=== PATIENT | male | born 1975 | race Caucasian/White ===

== ENCOUNTER 2019-04-02 14:55 | Inpatient (IN) | payer OTHER ==
[~2019-04-02] VITALS: Ht 188 cm; Wt 100.2 kg
--- NOTE | 2019-04-02 15:10 | NUR ---
PATIENT BIGG, CAME IN DUE TO BINGE DRINKING SINCE WEDNESDAY. ON ROOM AIR, BREATHING EVENLY AND UNLABORED. CONNECTED TO THE MONITOR AND PULSE OX. KEPT COMFORTABLE, WILL CONTINUE TO MONITOR ACCORDINGLY.
[2019-04-02] MEDS ORDERED: ONDANSETRON HCL/PF 4 MG/2 ML VIAL ONE (15:21)
[2019-04-02 15:25] LABS: BASOPHILS # (AUTO) 0.1 /CMM (0.0-0.2); BASOPHILS % (AUTO) 0.6 % (0.0-2.0); EOSINOPHILS % (AUTO) 0.2 % (0.0-6.0); HEMATOCRIT 50 % (39-51); HEMOGLOBIN 17.1 g/dL (13.5-17.5); LYMPHOCYTES # (AUTO) 1.3 /CMM (0.8-4.8); LYMPHOCYTES % (AUTO) 16.1 % (20.0-44.0); MEAN CORPUSCULAR HGB CONC 34 g/dl (31.0-36.0); MEAN CORPUSCULAR VOLUME 92 fL (80-96); MONOCYTES # (AUTO) 0.3 /CMM (0.1-1.30); MONOCYTES % (AUTO) 3.6 % (2.0-12.0); NEUTROPHILS # (AUTO) 6.6 /CMM (1.8-8.9); NEUTROPHILS % (AUTO) 79.5 % (43.0-81.0); PLATELET COUNT (AUTO) 229 /CMM (150-450); RED BLOOD CELL COUNT(AUTO) 5.43 MIL/uL (4.5-6.0); WHITE BLOOD COUNT (AUTO) 8.3 K/uL (4.3-11.0)
[2019-04-02] MEDS ORDERED: ONDANSETRON HCL/PF 4 MG/2 ML VIAL IVP ONE (15:30)
[2019-04-02] MEDS ORDERED: IV NS 0.9% 1,000 ML BAG IV ONE ×2 (15:30→18:30)
[2019-04-02 15:45] LABS: CALCIUM, SERUM 8.5 mg/dL (8.5-10.1); CARBON DIOXIDE 21 mmol/L (21-32); CHLORIDE 95 mmol/L (98-107); CREATININE 1.1 mg/dL (0.6-1.3); GLUCOSE 187 mg/dL (74-106); POTASSIUM 3.1 mmol/L (3.5-5.1); SODIUM SERUM 137 mmol/L (136-145); UREA NITROGEN, BLOOD 15 mg/dL (7-18)
--- NOTE | 2019-04-02 15:45 | NUR ---
PATIENT UNABLE TO URINATE AT THIS TIME FOR URINE SPECIMEN, WILL CONTINUE TO MONITOR.
[2019-04-02 15:55] LABS: SALICYLATE 1.6 mg/dL (2.8-20.0)
[2019-04-02 15:57] LABS: ALANINE AMINOTRANSFERASE 85 U/L (12-78); ALKALINE PHOSPHATASE 61 U/L (46-116); ASPARTATE AMINOTRANSFERASE 100 U/L (15-37); BILIRUBIN,DIRECT 0.3 mg/dL (0.0-0.2); BILIRUBIN,TOTAL 0.8 mg/dL (0.2-1.0); LIPASE 392 U/L (73-393); TOTAL PROTEIN, SERUM 8.3 g/dL (6.4-8.2)
[2019-04-02 16:57] LABS: B-TYPE NATRIURETIC PEPTIDE 17 PG/ML (0-125)
[2019-04-02] MEDS ORDERED: ACETAMINOPHEN ES 500 MG TABLET ONE (17:34)
[2019-04-02 17:58] LABS: ABG BASE EXCESS -1.2 mmol/L; ABG OXYGEN SATURATION 95.4 % (92.0-98.5); ABG PCO2 31.2 mmHg (35.0-45.0); ABG PH 7.455 (7.350-7.450); ABG PO2 83.6 mmHg (75.0-100.0); AaDO2 28.8 mmHg; COHb 0.6 % (0.5-1.5); MetHb 0.5 % (0.0-1.5); O2Hb 94.4 % (94.0-97.0); SITE, ABG Right Radial; VENT MODE, BG RA
--- NOTE | 2019-04-02 18:07 | NUR ---
RECIEVED BED 115-1
[2019-04-02] MEDS ORDERED: Z GUARD REMEDY 2 OZ OINT TP PRN (18:30)
[2019-04-02] MEDS ORDERED: MAG HYDROX/AL HYDROX/SIMETH 30 ML UDC PO PRN (18:30)
[2019-04-02] MEDS ORDERED: ASPIRIN 81 MG TAB.CHEW PO ONE (18:30)
[2019-04-02] MEDS ORDERED: MVI-12 10ML IV ONE (18:30)
[2019-04-02] MEDS ORDERED: ACETAMINOPHEN 325 MG TABLET PO PRN (18:30)
[2019-04-02] MEDS ORDERED: MAGNESIUM HYDROXIDE 30 ML UDC PO PRN (18:30)
[2019-04-02] MEDS ORDERED: POTASSIUM CHLORIDE 20 MEQ TAB.PRT.SR PO ONE ×2 (18:30→18:44)
[2019-04-02] MEDS ORDERED: ASPIRIN 81 MG TAB.CHEW ONE (18:44)
[2019-04-02] MEDS ORDERED: MVI ADULT 10ML VIAL = 1AMP 10 ML in IV NS 0.9% 1,000 ML IV ONE (19:00)
--- NOTE | 2019-04-02 19:13 | NUR ---
WHEELED PATIENT VIA GURNEY ACCOMPANIED BY RN AND FAMILY DEVELOPMENT EXTENSION SPECIALIST IN NO APPARENT DISTRESS NOTED.
[2019-04-02 20:00] VITALS: BP 146/90
--- NOTE | 2019-04-02 20:00 | NUR ---
ELECTRON BEAM OPERATOR NOTE ADMITTED 44 YEARS OLD MALE PT FROM ER WITH THE DX OF ETOH INTOXICATION. A/O X 4, NO SOB NOTED. C/O SEVER HEADACHE 04/22 NORCO 1 TAB PO GIVEN. ALSO GIVEN REGULAR MEDS. IVF NS BOLUS INFUSING AT THIS TIME. RT HAND # 18 G IV SITE INTACT AND PATENT. NO S/S OF INFILTRATION NOTED. ON TELE S TECH HR 125. SIDE RAILS UP X 2 AND CALL LIGHT WITHIN REACH. ORIENTED THE PT TO HIS ROOM. ADMITTING ORDERS CHECKED AND CARRIED OUT. ALL NEEDS ATTENDED.
[2019-04-02] MEDS: HYDROCODONE/APAP 5/325MG 1 EACH TABLET PO PRN (20:06)
[2019-04-02] MEDS: LORAZEPAM INJ 2 MG/ML VIAL IV PRN (20:27)
--- NOTE | 2019-04-02 20:30 | NUR ---
TRACKMOBILE OPERATOR NOTE PT IS ANXIOUS AND HAVING TREMORS ATIVAN 2 MG IVP GIVEN. CONTINUE TO MONITOR HIM.
--- NOTE | 2019-04-02 21:00 | NUR ---
POWER LINE INSTALLER AND REPAIRER NOTE ANXIETY AND TREMORS SUBSIDED. CONTINUE TO MONITOR. MOTHER AT BED SIDE.
[2019-04-02] MEDS: Thiamine 100 MG in IV D5W 50 ML IV SCH (21:05)
[2019-04-02] MEDS: Folic acid 1 MG in IV D5W 50 ML IV SCH (22:02)
--- NOTE | 2019-04-02 22:57 | NUR ---
IN FLIGHT REFUELING OPERATOR NOTE INFORMED DR HOOD REGARDING TROP LEVEL WENT UP TO 0.149. PER MD HE WILL LOOK INTO IT. PT DENIES CHEST PAIN OR ANY DISCOMFORT. ALSO REPORT GIVEN TO TAYO FOR CONTINUE TO CARE.
[2019-04-03] VITALS: BP 138/85
[2019-04-03] MEDS: LORAZEPAM INJ 2 MG/ML VIAL IV PRN ×5 (00:01→20:44)
[2019-04-03] MEDS ORDERED: Folic acid 1 MG/0.2 ML VIAL ONE (00:33)
[2019-04-03] MEDS ORDERED: Thiamine 100 MG/ML VIAL ONE (00:33)
[2019-04-03] MEDS: ZOLPIDEM TARTRATE 5 MG TABLET PO PRN (00:53)
--- NOTE | 2019-04-03 01:32 | NUR ---
REPORT RECEIVED FROM MIKE DOWLING. WILL CONTINUE CARE. Addendum: 04/03/19 at 0133 by ABHAY ZAMUDIO RN TIME AND DATE 04/02 4192
[2019-04-03] MEDS: HYDROCODONE/APAP 5/325MG 1 EACH TABLET PO PRN ×5 (03:25→20:44)
[2019-04-03 04:00] VITALS: BP 131/81
[2019-04-03 04:45] LABS: CALCIUM, SERUM 7.6 mg/dL (8.5-10.1); CREATININE 0.9 mg/dL (0.6-1.3); MAGNESIUM 1.6 mg/dL (1.8-2.4); PHOSPHORUS 1.3 mg/dL (2.5-4.9); POTASSIUM 3.1 mmol/L (3.5-5.1)
[2019-04-03 04:52] LABS: BASOPHILS % (AUTO) 0.3 % (0.0-2.0); EOSINOPHILS % (AUTO) 0.5 % (0.0-6.0); HEMATOCRIT 40 % (39-51); HEMOGLOBIN 13.8 g/dL (13.5-17.5); LYMPHOCYTES # (AUTO) 1.3 /CMM (0.8-4.8); LYMPHOCYTES % (AUTO) 17.1 % (20.0-44.0); MEAN CORPUSCULAR HGB CONC 34 g/dl (31.0-36.0); MEAN CORPUSCULAR VOLUME 91 fL (80-96); MONOCYTES # (AUTO) 0.4 /CMM (0.1-1.30); MONOCYTES % (AUTO) 4.7 % (2.0-12.0); NEUTROPHILS # (AUTO) 5.8 /CMM (1.8-8.9); NEUTROPHILS % (AUTO) 77.4 % (43.0-81.0); PLATELET COUNT (AUTO) 142 /CMM (150-450); RED BLOOD CELL COUNT(AUTO) 4.41 MIL/uL (4.5-6.0); WHITE BLOOD COUNT (AUTO) 7.4 K/uL (4.3-11.0)
--- NOTE | 2019-04-03 06:15 | NUR ---
RN MS CLOSING NOTE PT REMAINS IN BED SLEEPING INTERMITTENTLY, BREATHING EVEN AND UNLABORED ON RA. NO COMPLAIN OF PAIN OR DISCOMFORT AT THE MOMENT. IV ACCESS ON THE R HAND 18G WITH MV IV @125ML/HR. INVOICING SPECIALIST IN PLACE, SR IN THE 90S BED IN LOWEST LOCKED POSITION, CALL LIGHT WITHIN REACH AT ALL TIMES, WILL ENDORSE TO DAY NURSE FOR DEMETRA.
--- NOTE | 2019-04-03 07:35 | NUR ---
RN OPENING NOTES RECEIVED PATIENT IN BED RESTING. ON TELEMONITOR SR 97. A/OX4 ABLE TO MAKE NEEDS KNOWN. NOT IN ANY FORM OF DISTRESS. NO SOB. COMPLAINS OF HEADACHE 04/22, WILL ADMINISTER PAIN MEDS ORDERED. TOLERATING ROOM AIR SATTING 96%. IV ACCESS INTACT AND PATENT. KEPT PATIENT SAFE AND COMFORTABLE. BED IN LOW/LOCKED POSIITON, SIDERAISL UPX2, CALL LIGHT IN REACH. BED ALARM ON. WILL CONTINUE TO MONIOTR ACCORDINGLY.
[2019-04-03] MEDS: ONDANSETRON HCL/PF 4 MG/2 ML VIAL IVP PRN (07:47)
[2019-04-03 08:00] VITALS: BP 139/99
[2019-04-03] MEDS: CYANOCOBALAMIN 500 MCG TABLET PO SCH (09:22)
[2019-04-03] MEDS ORDERED: Magnesium 1GM/D5W 100ML PREMIX 100 ML IV SCH (09:23)
[2019-04-03] MEDS: IV NS 0.9% 1,000 ML IV PRN (09:26)
[2019-04-03] MEDS: POTASSIUM CHLORIDE 20 MEQ TAB.PRT.SR PO SCH ×2 (10:10→12:13)
[2019-04-03] MEDS ORDERED: K PHOS NEUTRAL 250 MG TABLET PO ONE (11:30)
[2019-04-03 12:00] VITALS: BP 148/113
[2019-04-03 16:00] VITALS: BP 156/98
--- NOTE | 2019-04-03 18:41 | NUR ---
RN CLOSING NOTES PATIENT IN STABLE CONDITION. ALL NEED ATTENDED AND PROVIDED. ALL DUE MEDICATIONS GIVEN S ORDERED. KEPT PATIENT SAFE AND COMFORTABLE. BED IN LOW/LOCKED POSITION, SIDERAILS UPX2, CALL LIGHT IN REACH. WILL ENDORSED TO NIGHT RN FOR DEMETRA.
--- NOTE | 2019-04-03 19:39 | NUR ---
MS RN NOTES RECEIVED PT ON BED. SLEEPING. ON RA NO RESPIRATORY DISTRESS NOTED. IV ACCESS ON RHAND G18 NS @125CC/HR, RUNNING WELL. PATENT AND INTACT. HEAD OF BED ELEVATED. SIDE RAILS UP. CALL LIGHT WITHIN REACH, BED ALARM ON. WILL CONT TO MONITOR PT CLOSELY.
[2019-04-03] MEDS: Thiamine 100 MG in IV D5W 50 ML IV SCH (19:55)
[2019-04-03 20:00] VITALS: BP 152/106
[2019-04-03] MEDS: Folic acid 1 MG in IV D5W 50 ML IV SCH (20:46)
[2019-04-04] VITALS (9 sets, daily range): BP systolic 139–173; BP diastolic 84–119
[2019-04-04] MEDS: IV NS 0.9% 1,000 ML IV PRN (00:03)
[2019-04-04] MEDS: LORAZEPAM INJ 2 MG/ML VIAL IV PRN ×5 (01:31→20:09)
[2019-04-04] MEDS: HYDROCODONE/APAP 5/325MG 1 EACH TABLET PO PRN ×5 (01:31→20:09)
[2019-04-04] MEDS: ZOLPIDEM TARTRATE 5 MG TABLET PO PRN ×2 (02:03→22:36)
--- NOTE | 2019-04-04 04:26 | NUR ---
MS RN NOTES BP OF 171/117 MMHG. PAGED EPIC KETTLE ROOM HELPER, AWAITING FOR ORDERS.
--- NOTE | 2019-04-04 05:38 | NUR ---
MS RN NOTES PAGED SAVANNAH HARLEY SHOE LINING FITTER X2. AWAITING CALL BACK.
[2019-04-04 06:38] LABS: BASOPHILS % (AUTO) 0.2 % (0.0-2.0); EOSINOPHILS % (AUTO) 3.6 % (0.0-6.0); HEMATOCRIT 39 % (39-51); HEMOGLOBIN 13.5 g/dL (13.5-17.5); LYMPHOCYTES # (AUTO) 1.1 /CMM (0.8-4.8); LYMPHOCYTES % (AUTO) 19.2 % (20.0-44.0); MEAN CORPUSCULAR HGB CONC 35 g/dl (31.0-36.0); MEAN CORPUSCULAR VOLUME 92 fL (80-96); MONOCYTES # (AUTO) 0.2 /CMM (0.1-1.30); MONOCYTES % (AUTO) 4.1 % (2.0-12.0); NEUTROPHILS # (AUTO) 4.2 /CMM (1.8-8.9); NEUTROPHILS % (AUTO) 72.9 % (43.0-81.0); PLATELET COUNT (AUTO) 98 /CMM (150-450); RED BLOOD CELL COUNT(AUTO) 4.23 MIL/uL (4.5-6.0); WHITE BLOOD COUNT (AUTO) 5.8 K/uL (4.3-11.0)
[2019-04-04 06:58] LABS: CALCIUM, SERUM 7.8 mg/dL (8.5-10.1); CREATININE 0.8 mg/dL (0.6-1.3); MAGNESIUM 1.5 mg/dL (1.8-2.4); POTASSIUM 2.9 mmol/L (3.5-5.1)
[2019-04-04 07:09] LABS: PHOSPHORUS 2.7 mg/dL (2.5-4.9)
--- NOTE | 2019-04-04 07:27 | NUR ---
MS RN NOTES NO ACUTE CHANGES NOTED DURING THE SHIFT. PROVIDED COMFORT AND SAFETY. WILL ENDORSE TO THE AM NURSE FOR CONTINUITY OF CARE.
--- NOTE | 2019-04-04 08:00 | NUR ---
MS RN NOTES RECEIVED PT ON BED. SLEEPING. ON RA NO RESPIRATORY DISTRESS NOTED. IV ACCESS ON RT HAND G18 NS @125CC/HR, RUNNING WELL. PATENT AND INTACT. PT IS ANXIOUS AND IS ASKING FOR ATIVAN AND NORCO.BP IS 161/107 HR 99.WILL RECHECK.HEAD OF BED ELEVATED. SIDE RAILS UP. CALL LIGHT WITHIN REACH, BED ALARM ON. WILL CONT TO MONITOR PT CLOSELY.
[2019-04-04] MEDS: CYANOCOBALAMIN 500 MCG TABLET PO SCH (09:16)
[2019-04-04 10:06] LABS: THYROID STIMULATING HORMONE 0.954 uIU/mL (0.358-3.74)
[2019-04-04] MEDS: Magnesium 1GM/D5W 100ML PREMIX 100 ML IV SCH ×4 (10:14→14:49)
[2019-04-04] MEDS: POTASSIUM CHLORIDE 20 MEQ TAB.PRT.SR PO SCH ×5 (10:14→14:55)
[2019-04-04 10:28] LABS: EOSINOPHILS % (MANUAL) 4 % (0-4); LYMPHOCYTES % (MANUAL) 18 % (16-48); MONOCYTES % (MANUAL) 5 % (0-11.0); NEUTROPHILS % (MANUAL) 73 (42-76)
[2019-04-04] MEDS ORDERED: FOLIC ACID 1 MG TABLET PO SCH (11:00)
[2019-04-04] MEDS ORDERED: THIAMINE HCL 100 MG TABLET PO SCH (11:00)
--- NOTE | 2019-04-04 11:00 | NUR ---
RECHECKED BP AND WAS 168/110 HR 93 WHILE RESTING IN BED.DENIES ANY DISTRESS OR DISCOMFORT.INFORMED DR DIMAS WITH ORDER FOR HYDRALAZINE PO PRN AND CARRIED OUT.
[2019-04-04] MEDS ORDERED: hydrALAZINE HCL 25 MG TABLET PO PRN (11:30)
--- NOTE | 2019-04-04 13:40 | NUR ---
PT'S OLD H/L SITE TO RT HAND GOT INFILTRATED SO WE REPLACE [place] SITE TO LT HAND GAUGE 22.PT TOLERATED WELL.APPLIED ICE PACK ON THE RT HAND AND KEPT IT ELEVATED.
[2019-04-04] MEDS: ONDANSETRON HCL/PF 4 MG/2 ML VIAL IVP PRN (13:53)
--- NOTE | 2019-04-04 18:57 | NUR ---
PT RESTING IN BED WATCHING TV DENYING ANY PAIN OR DISTRESS.PT'S MOM AT BEDSIDE.CALL LIGHT PLACED WITHIN REACH.
--- NOTE | 2019-04-04 22:39 | NUR ---
RN NOTE PATIENT REQUESTED TO LEAVE AMA. PATIENT STATED "I THINK I FEEL MORE COMFORTABLE AT HOME" EXPLAINED ALL RISKS AND BENEFITS, PATIENT MADE DECISION TO STAY IN THE HOSPITAL, SHAYY AWAD IS AWARE, CHARGE NURSE NITESH IS AWARE
--- NOTE | 2019-04-04 22:39 | NUR ---
RN NOTE PATIENT REQUESTED SLEEPING PILL DUE TO INSOMNIA, ADMINISTERED ORDERED
--- NOTE | 2019-04-04 23:30 | NUR ---
RN NOTE PATIENT REQUESTED TO CHANGE ROOM FOR PRIVACY, CHANGED ROOM TO 112 (2)
--- NOTE | 2019-04-05 | NUR ---
RN NOTE PATIENT DECIDED TO LEAVE HOSPITAL AMA, PER PATIENT" I AM SORRY YOU GUYS ARE GREAT BUT I WOULD RATHER GO HOME", EXPLAINED ALL RISKS AND BENEFITS, STILL REFUSED, NOTIFIED SHAYY AWAD, NOTIFIED CHARGE NURSE NITESH, NITESH SPOKE TO THE PATIENT WELL, NOTIFIED OF ALL RISKS AND BENEFITS, PATIENT STILL REFUSED TO STAY, REMOVED IV FROM LEFT HAND 22 GAUGE, NO S/S OF INFECTION/INFILTRATION NOTED, ALERT/ORIENTED X 4, SKIN IS INTACT, VITAL SIGNS STABLE, NO RESPIRATORY DISTRESS NOTED, BELONGING'S LIST SIGNED BY THE PATIENT AND PLACED IN THE CHART, AMA DOCUMENT SIGNED AND PLACED IN THE CHART, TWO GRAIN WEIGHER'S ASSISTED PATIENT OUTSIDE OF THE HOSPITAL VIA WHEELCHAIR WITH ALL SAFETY MEASURES Addendum: 04/05/19 at 0028 by HEIDI TRINH RN CIRCUS RIDER SHANNAN IS AWARE
== END 2019-04-05 00:27 | disposition left against medical advice (07) | DRG 770 ==
LOC: ER 14:56 → TELE1 18:31 → MEDSG1 04-03 19:03
PROVIDERS: ADMIT Family Medicine; ATTEND Student in an Organized Health Care Education/Training Program
DX: F10.229 Alcohol dependence with intoxication, unspecified (principal); I21.A1 Myocardial infarction type 2; E87.2 Acidosis; Y90.8 Blood alcohol level of 240 mg/100 ml or more; E87.6 Hypokalemia; J45.909 Unspecified asthma, uncomplicated; F17.210 Nicotine dependence, cigarettes, uncomplicated; E83.42 Hypomagnesemia; R73.9 Hyperglycemia, unspecified; R74.0 Nonspecific elevation of levels of transaminase and lactic acid dehydrogenase [LDH]; E83.39 Other disorders of phosphorus metabolism
CPT/HCPCS: 36415; 36600; 71045-TC; 80048-TC; 80061-TC; 80076-TC; 80305; 82010-TC; 82728-TC; 82803-TC; 83540-TC; 83605-TC; 83690-TC; 83735-TC; 83880; 84100-TC; 84439-TC; 84443-TC; 84484-TC; 85025-TC; 85730-TC; 87081-TC; 93307-TC; G0378; G0480; J2060; J2405; J3411; J3475; J3490; J7030; J7060

== ENCOUNTER 2020-03-28 09:56 | Emergency (ER) | payer OTHER ==
[~2020-03-28] VITALS: Ht 170.2 cm; Wt 72.6 kg
[2020-03-28] MEDS: IV NS 0.9% 1,000 ML BAG IV ONE (10:31)
--- NOTE | 2020-03-28 10:39 | NUR ---
Pt insistent on leaving AMA states "If doctor says im ok I want to go" Explained that test results will take a while and that he is NOT cleared medically BYUT insisting on leaving states "I am NOT comfortable -I want to go" Dr Og made aware. Pt signed AMA form
[2020-03-28 10:41] LABS: BASOPHILS % (AUTO) 0.4 % (0.0-2.0); EOSINOPHILS % (AUTO) 0.9 % (0.0-6.0); HEMATOCRIT 46 % (39-51); HEMOGLOBIN 15.9 g/dL (13.5-17.5); LYMPHOCYTES # (AUTO) 1.9 /CMM (0.8-4.8); LYMPHOCYTES % (AUTO) 26.4 % (20.0-44.0); MEAN CORPUSCULAR HGB CONC 35 g/dl (31.0-36.0); MEAN CORPUSCULAR VOLUME 93 fL (80-96); MONOCYTES # (AUTO) 0.3 /CMM (0.1-1.30); MONOCYTES % (AUTO) 4.6 % (2.0-12.0); NEUTROPHILS # (AUTO) 4.8 /CMM (1.8-8.9); NEUTROPHILS % (AUTO) 67.7 % (43.0-81.0); PLATELET COUNT (AUTO) 277 /CMM (150-450); RED BLOOD CELL COUNT(AUTO) 4.94 MIL/uL (4.5-6.0); WHITE BLOOD COUNT (AUTO) 7.1 K/uL (4.3-11.0)
[2020-03-28 10:42] VITALS: BP 137/90
[2020-03-28 10:50] LABS: CALCIUM, SERUM 8.3 mg/dL (8.5-10.1); CARBON DIOXIDE 28 mmol/L (21-32); CHLORIDE 99 mmol/L (98-107); CREATININE 0.8 mg/dL (0.6-1.3); GLUCOSE 166 mg/dL (74-106); POTASSIUM 3.4 mmol/L (3.5-5.1); SODIUM SERUM 137 mmol/L (136-145); UREA NITROGEN, BLOOD 12 mg/dL (7-18)
== END 2020-03-28 10:44 | disposition left against medical advice (07) ==
LOC: ER 09:57
DX: R00.2 Palpitations (principal); Z60.2 Problems related to living alone
CPT/HCPCS: 36415; 80048; 84484; 85025; 93005 ×2; 99284; J7030

== ENCOUNTER 2020-03-30 10:18 | Emergency (ER) | payer OTHER ==
[~2020-03-30] VITALS: Ht 188 cm; Wt 99.8 kg
--- NOTE | 2020-03-30 10:20 | NUR ---
PT BIB SELF C/O CHEST PAIN AND PALPITATIONS STARTED 10 MINS AGO +ETOH, PT IS AAOX4, NOT IN RESPIRATORY DISTRESS, HOOKED TO [employer] ELECTRICAL SYSTEMS DESIGNER, KEPT RESTED AND COMFORTABLE. WILL CONTINUE TO MONITOR.
--- NOTE | 2020-03-30 10:30 | NUR ---
SEEN AND EXAMINED BY .
--- NOTE | 2020-03-30 10:34 | NUR ---
IV LINE ESTABLISHED BLOOD DRAWN AND SENT TO LAB.
[2020-03-30 10:50] LABS: BASOPHILS % (AUTO) 0.3 % (0.0-2.0); EOSINOPHILS % (AUTO) 0.4 % (0.0-6.0); HEMATOCRIT 47 % (39-51); HEMOGLOBIN 16.1 g/dL (13.5-17.5); LYMPHOCYTES # (AUTO) 1.7 /CMM (0.8-4.8); MEAN CORPUSCULAR HGB CONC 34 g/dl (31.0-36.0); MEAN CORPUSCULAR VOLUME 94 fL (80-96); MONOCYTES # (AUTO) 0.3 /CMM (0.1-1.30); MONOCYTES % (AUTO) 3.6 % (2.0-12.0); NEUTROPHILS % (AUTO) 71.7 % (43.0-81.0); PLATELET COUNT (AUTO) 261 /CMM (150-450); RED BLOOD CELL COUNT(AUTO) 5.04 MIL/uL (4.5-6.0)
[2020-03-30] MEDS ORDERED: IV NS 0.9% 1,000 ML BAG IV ONE (11:00)
[2020-03-30] MEDS ORDERED: Thiamine 100 MG in IV D5W 50 ML IV SCH (11:00)
[2020-03-30 11:01] LABS: CALCIUM, SERUM 8.3 mg/dL (8.5-10.1); CARBON DIOXIDE 27 mmol/L (21-32); CHLORIDE 99 mmol/L (98-107); CREATININE 0.8 mg/dL (0.6-1.3); GLUCOSE 149 mg/dL (74-106); POTASSIUM 3.6 mmol/L (3.5-5.1); SODIUM SERUM 137 mmol/L (136-145); UREA NITROGEN, BLOOD 9 mg/dL (7-18)
--- NOTE | 2020-03-30 11:44 | NUR ---
pt ambulatory. steady gait. cleared by ermd. does not want to wait for ACi. left in stable condition. IV removed. Catheter intact and site benign. Pressure and 4x4 applied to site. No bleeding noted.
[2020-03-30 11:46] VITALS: BP 136/94
== END 2020-03-30 11:47 | disposition home or self-care (01) ==
LOC: ER 10:19
DX: R00.2 Palpitations (principal); F10.10 Alcohol abuse, uncomplicated; R00.0 Tachycardia, unspecified; Y90.8 Blood alcohol level of 240 mg/100 ml or more; Z85.47 Personal history of malignant neoplasm of testis; Z60.2 Problems related to living alone
CPT/HCPCS: 36415; 71045; 80048; 80307; 84484; 85025; 93005; 96365; 99285; J3411; J7030; J7060; G0480

== ENCOUNTER 2020-03-31 09:27 | Emergency (ER) | payer OTHER ==
[~2020-03-31] VITALS: Ht 177.8 cm; Wt 86.2 kg
--- NOTE | 2020-03-31 10:19 | NUR ---
Patient awake alert orreinted noted ambulatory non distress @ this time
[2020-03-31 10:24] VITALS: BP 145/89
--- NOTE | 2020-03-31 10:24 | NUR ---
Patient discharged to home in stable condition. Written and verbal after care instructions given. Patient verbalizes understanding of instruction.
[2020-03-31] MEDS ORDERED: ONDANSETRON 4 MG TAB.RAPDIS PO ONE (10:30)
== END 2020-03-31 10:24 | disposition home or self-care (01) ==
LOC: ER 09:32
DX: R11.0 Nausea (principal); F10.20 Alcohol dependence, uncomplicated; R00.0 Tachycardia, unspecified; Y90.9 Presence of alcohol in blood, level not specified; Z85.47 Personal history of malignant neoplasm of testis; Z60.2 Problems related to living alone

== ENCOUNTER 2021-02-17 10:23 | Emergency (ER) | payer OTHER ==
[~2021-02-17] VITALS: Ht 188 cm; Wt 99.8 kg
[2021-02-17 10:35] VITALS: BP 145/97
--- NOTE | 2021-02-17 10:35 | NUR ---
patient came in to the er c/o ETOH, having alcohol withdrawal, last drink of vodka this morning. On room air, breathing evenly and unlabored. Kept comfortable, will continue to monitor accordingly.
--- NOTE | 2021-02-17 10:37 | NUR ---
Dr. Albrecht at bedside for eval.
[2021-02-17 11:06] LABS: BASOPHILS % (AUTO) 0.4 % (0.0-2.0); EOSINOPHILS % (AUTO) 0.8 % (0.0-6.0); HEMATOCRIT 44 % (39-51); HEMOGLOBIN 15.3 g/dL (13.5-17.5); LYMPHOCYTES # (AUTO) 1.7 /CMM (0.8-4.8); LYMPHOCYTES % (AUTO) 16.8 % (20.0-44.0); MEAN CORPUSCULAR HGB CONC 35 g/dl (31.0-36.0); MEAN CORPUSCULAR VOLUME 92 fL (80-96); MONOCYTES # (AUTO) 0.5 /CMM (0.1-1.30); MONOCYTES % (AUTO) 5.2 % (2.0-12.0); NEUTROPHILS # (AUTO) 7.6 /CMM (1.8-8.9); NEUTROPHILS % (AUTO) 76.8 % (43.0-81.0); PLATELET COUNT (AUTO) 219 /CMM (150-450); RED BLOOD CELL COUNT(AUTO) 4.83 MIL/uL (4.5-6.0); WHITE BLOOD COUNT (AUTO) 9.8 K/uL (4.3-11.0)
--- NOTE | 2021-02-17 11:14 | NUR ---
Patient discharged to home in stable condition. Written and verbal after care instructions given. Patient verbalizes understanding of instruction. Refused to sign d/c paper. Ambulate well with steady gait.
[2021-02-17 11:25] LABS: ALANINE AMINOTRANSFERASE 84 U/L (12-78); ALCOHOL, BLOOD 409 mg/dL (0-0); ALKALINE PHOSPHATASE 58 U/L (46-116); ASPARTATE AMINOTRANSFERASE 101 U/L (15-37); BILIRUBIN,DIRECT 0.3 mg/dL (0.0-0.2); BILIRUBIN,TOTAL 0.9 mg/dL (0.2-1.0); CALCIUM, SERUM 7.7 mg/dL (8.5-10.1); CARBON DIOXIDE 24 mmol/L (21-32); CHLORIDE 91 mmol/L (98-107); CREATININE 0.8 mg/dL (0.6-1.3); GLUCOSE 116 mg/dL (74-106); POTASSIUM 2.9 mmol/L (3.5-5.1); SODIUM SERUM 132 mmol/L (136-145); TOTAL PROTEIN, SERUM 7.7 g/dL (6.4-8.2); UREA NITROGEN, BLOOD 8 mg/dL (7-18)
[2021-02-17 11:27] LABS: ACETAMINOPHEN < 10 ug/ml (10-30)
[2021-02-17 11:49] LABS: BILIRUBIN,URINE NEGATIVE (NEGATIVE); LEUKOCYTE ESTERASE ,URINE NEGATIVE (NEGATIVE); NITRITE, URINE NEGATIVE (NEGATIVE); PH,URINE 6.5 (5.0-8.0); PROTEIN,URINE TRACE mg/dl (NEGATIVE); UGLUCOSE NEGATIVE (NEGATIVE); UROBILINOGEN,URINE 0.2 EU/dL (0.2)
[2021-02-17 11:57] LABS: COLOR,URINE STRAW (YELLOW)
[2021-02-17 12:26] LABS: BACTERIA,URINE None seen /HPF (None Seen); SQUAMOUS EPITHELIAL CELL,UR Rare /HPF (None Seen); WBC,URINE 0-2 /HPF (0-3)
== END 2021-02-17 11:17 | disposition left against medical advice (07) ==
LOC: ER 10:24
DX: F10.129 Alcohol abuse with intoxication, unspecified (principal); Z60.2 Problems related to living alone; Y90.8 Blood alcohol level of 240 mg/100 ml or more
CPT/HCPCS: 36415; 80048-TC; 80076-TC; 81001; 85025-TC; G0480